=== PATIENT | male | born 1975 | race Caucasian/White ===

== ENCOUNTER 2024-03-14 18:57 | Inpatient (IN) | payer MEDICAID ==
[~2024-03-14] VITALS: Ht 162.6 cm; Wt 66.4 kg
[2024-03-14] MEDS: NOREPINEPHRINE 4 MG in DEXTROSE 5% 250 ML IV ONE (00:10)
[2024-03-14] MEDS ORDERED: DILTIAZEM 25 MG/5 ML VIAL IVP ONE (19:00)
[2024-03-14] MEDS ORDERED: DILTIAZEM 125 MG/25 ML VIAL IV ONE (19:10)
[2024-03-14 19:18] LABS: BASOPHILS # (AUTO) 0.1 K/uL (0.00-0.22); BASOPHILS % (AUTO) 0.9 % (0.0-2.0); EOSINOPHILS % (AUTO) 0.5 % (0.0-4.0); HEMATOCRIT 34.8 % (36-52); HEMOGLOBIN 11.4 g/dL (12.0-18.0); LYMPHOCYTES # (AUTO) 1.3 K/uL (2.0-11.5); LYMPHOCYTES % (AUTO) 14.5 % (20.5-51.1); MEAN CORPUSCULAR HEMOGLOBIN 24 pg (27-31); MEAN CORPUSCULAR HGB CONC 33 g/dL (33-37); MEAN CORPUSCULAR VOLUME 74.3 fL (80-94); MONOCYTES # (AUTO) 0.7 K/uL (0.8-1.0); MONOCYTES % (AUTO) 7.6 % (1.7-9.3); NEUTROPHILS # (AUTO) 6.7 K/uL (1.8-7.7); NEUTROPHILS % (AUTO) 76.5 % (42.2-75.2); PLATELET COUNT (AUTO) 389 K/uL (140-450); RED BLOOD CELL COUNT(AUTO) 4.69 MIL/uL (4.20-6.10); WHITE BLOOD COUNT (AUTO) 8.7 K/uL (4.8-10.8)
[2024-03-14 19:21] VITALS: BP 123/96; PULSE 175; RESP 30; TEMP 98.3; O2SAT 90
[2024-03-14] MEDS: DILTIAZEM 25 MG/5 ML VIAL IVP ONE (19:27)
[2024-03-14] MEDS: DILTIAZEM 125 MG in DEXTROSE 5% 100 ML IV ONE (19:30)
[2024-03-14 19:53] LABS: ALANINE AMINOTRANSFERASE 82 U/L (12-78); ALBUMIN 2.5 g/dL (3.4-5.0); ALKALINE PHOSPHATASE 154 U/L (50-136); ASPARTATE AMINOTRANSFERASE 61 U/L (15-37); BILIRUBIN,DIRECT 0.1 mg/dL (0.0-0.3); TOTAL BILIRUBIN 0.4 mg/dL (0.0-1.0); TOTAL PROTEIN, SERUM 6.2 g/dL (6.4-8.2)
[2024-03-14 20:01] LABS: ANION GAP 13.6 (8-16); CALCIUM 7.9 mg/dL (8.5-10.1); CARBON DIOXIDE 22.4 mmol/L (21-32); CREATININE 0.9 mg/dL (0.6-1.3)
[2024-03-14 20:49] LABS: APPEARANCE,URINE CLEAR (CLEAR); BILIRUBIN,URINE NEGATIVE (NEGATIVE); BLOOD, URINE NEGATIVE (NEGATIVE); COLOR,URINE YELLOW (YELLOW); LEUKOCYTE ESTERASE ,URINE NEGATIVE (NEGATIVE); NITRITE, URINE NEGATIVE (NEGATIVE); PROTEIN,URINE 1+ (NEGATIVE); UGLUCOSE NEGATIVE (NEGATIVE)
[2024-03-14 20:58] LABS: AMPHETAMINE, URINE POSITIVE ng/ml (NEG <=1000); BARBITURATE, URINE NEGATIVE ng/ml (NEG <=200); BENZODIAZEPINE, URINE NEGATIVE ng/mL (NEG <=200); CANNABINOID, URINE POSITIVE ng/mL (NEG <=50); COCAINE, URINE NEGATIVE ng/mL (NEG <=300); OPIATE, URINE NEGATIVE ng/mL (NEG <=2000); PHENCYCLIDINE SCREEN,URINE NEGATIVE ng/mL (NEG <=25)
[2024-03-14] MEDS: METOPROLOL 50 MG TAB PO ONE (21:13)
[2024-03-14 21:17] LABS: BACTERIA,URINE FEW /HPF (None Seen); RBC,URINE 0-5 /HPF (0-5); WBC,URINE 0-5 /HPF (0-5)
[2024-03-14 21:18] LABS: MUCUS,URINE None Seen /LPF (None Seen); SQUAMOUS EPITHELIAL CELL,UR 0-3 (FEW) /LPF (0-3 (FEW)); TRICHOMONAS,URINE None Seen /HPF (None Seen); WHITE BLOOD CELL CASTS,URINE None Seen /LPF (None Seen); YEAST,URINE None Seen /HPF (None Seen)
[2024-03-14] MEDS ORDERED: ONDANSETRON 4 MG/2 ML VIAL ONE (22:04)
[2024-03-14] MEDS ORDERED: cefTRIAXone 1,000 MG VIAL ONE (22:04)
[2024-03-14] MEDS: FUROSEMIDE 20 MG/2 ML VIAL IVP ONE (22:10)
[2024-03-14] MEDS: ONDANSETRON 4 MG/2 ML VIAL IVP ONE (22:23)
[2024-03-14] MEDS ORDERED: AZITHROMYCIN 500 MG INJ VIAL IV ONE (22:30)
[2024-03-14] MEDS: ETOMIDATE 20 MG/10 ML VIAL IVP ONE (22:52)
[2024-03-14] MEDS: SUCCINYLCHOLINE CHLORIDE 200 MG/10 ML VIAL IVP ONE (22:53)
[2024-03-14] MEDS ORDERED: PROPOFOL 1000 MG/100 ML PREMIX 100 ML IV ONE (22:55)
[2024-03-14] MEDS ORDERED: PROPOFOL 200 MG/20 ML VIAL IV ONE (23:00)
[2024-03-14] MEDS: PROPOFOL 1000 MG/100 ML PREMIX 100 ML IV SCH (23:15)
[2024-03-14 23:28] LABS: LACTIC ACID 2.4 mmol/L (0.4-2.0)
[2024-03-14] MEDS: AZITHROMYCIN 500 MG in DEXTROSE 5% 250 ML IV ONE (23:30)
[2024-03-14] MEDS: MIDAZOLAM MDV 50 MG/10 ML VIAL IV ONE (23:45)
[2024-03-14] MEDS: MIDAZOLAM MDV 50 MG in NACL 0.9% 40 ML IV STA (23:45)
[2024-03-14 23:46] VITALS: BP 103/79; PULSE 89; O2SAT 99
[2024-03-14] MEDS ORDERED: NOREPINEPHRINE 4 MG/4 ML VIAL IV ONE (23:56)
[2024-03-15] VITALS (32 sets, daily range): BP systolic 94–143; BP diastolic 31–104; PULSE 62–146; RESP 24–30; TEMP 97.1–97.6; O2SAT 90–100
[2024-03-15] MEDS ORDERED: HYDROcodone/APAP 7.5/325 MG 1 TAB PO PRN (01:40)
[2024-03-15] MEDS ORDERED: POTASSIUM CHLORIDE 10 MEQ TABER PO PRN (01:40)
[2024-03-15] MEDS ORDERED: DOCUSATE SODIUM 100 MG GELCAP PO PRN (01:40)
[2024-03-15] MEDS ORDERED: ONDANSETRON 4 MG/2 ML VIAL IM/IVP PRN (01:40)
[2024-03-15] MEDS ORDERED: guaiFENesin DM 200/20 MG-10 ML 10 ML UDC PO PRN (01:40)
[2024-03-15] MEDS ORDERED: ZOLPIDEM 5 MG TAB PO PRN (01:40)
[2024-03-15 02:44] LABS: FLU A ANTIGEN negative (NEGATIVE); FLU B ANTIGEN NEGATIVE (NEGATIVE)
[2024-03-15 03:12] LABS: BASOPHILS # (AUTO) 0.1 K/uL (0.00-0.22); BASOPHILS % (AUTO) 0.4 % (0.0-2.0); EOSINOPHILS % (AUTO) 0.1 % (0.0-4.0); HEMATOCRIT 39.3 % (36-52); HEMOGLOBIN 11.8 g/dL (12.0-18.0); LYMPHOCYTES # (AUTO) 1.3 K/uL (2.0-11.5); LYMPHOCYTES % (AUTO) 8.3 % (20.5-51.1); MEAN CORPUSCULAR HEMOGLOBIN 24 pg (27-31); MEAN CORPUSCULAR HGB CONC 30 g/dL (33-37); MEAN CORPUSCULAR VOLUME 78.5 fL (80-94); MONOCYTES % (AUTO) 6.6 % (1.7-9.3); NEUTROPHILS # (AUTO) 13.1 K/uL (1.8-7.7); NEUTROPHILS % (AUTO) 84.6 % (42.2-75.2); PLATELET COUNT (AUTO) 248 K/uL (140-450); RED BLOOD CELL COUNT(AUTO) 5.01 MIL/uL (4.20-6.10); RED CELL DISTRIBUTION WIDTH 19.9 % (11.6-13.7); WHITE BLOOD COUNT (AUTO) 15.5 K/uL (4.8-10.8)
[2024-03-15 03:34] LABS: ALBUMIN 2.5 g/dL (3.4-5.0); ANION GAP 24.1 (8-16); CALCIUM 7.7 mg/dL (8.5-10.1); CARBON DIOXIDE 13.8 mmol/L (21-32); CREATININE 1.7 mg/dL (0.6-1.3); POTASSIUM 4.9 mmol/L (3.5-5.1); TOTAL BILIRUBIN 1.1 mg/dL (0.0-1.0); TOTAL PROTEIN, SERUM 6.3 g/dL (6.4-8.2)
[2024-03-15 03:42] LABS: LACTIC ACID 10.8 mmol/L (0.4-2.0)
[2024-03-15] MEDS ORDERED: PIPERACILLIN/TAZOBACTAM 3.375 GM VIAL IV ONE (04:32)
[2024-03-15] MEDS ORDERED: NOREPINEPHRINE 4 MG/4 ML VIAL IV ONE (04:32)
[2024-03-15] MEDS: PIPERACILLIN/TAZOBACTAM 3.375 GM in DEXTROSE 5% 50 ML IV SCH (06:06)
[2024-03-15 06:11] LABS: BLOOD GAS BASE EXCESS -12.8 mmol/L (-2.0-2.0); BLOOD GAS HCO3 11.6 mmol/L (22-26); BLOOD GAS PCO2 23.6 mmHg (35-45); BLOOD GAS PO2 84.9 mmHg (75-100)
[2024-03-15] MEDS ORDERED: CRUSHER, PILL MC ONE (07:59)
[2024-03-15] MEDS: ACETAMINOPHEN 325 MG TAB PO PRN (08:13)
[2024-03-15] MEDS: PANTOPRAZOLE 40 MG TABEC PO SCH (09:08)
[2024-03-15] MEDS: methylPREDNISolone SS 40 MG/ML VIAL IVP SCH (09:08)
[2024-03-15] MEDS: SODIUM BICARBONATE 8.4% PFS 50 MEQ/50 ML SYR IVP SCH (09:11)
[2024-03-15] MEDS: ENOXAPARIN 40 MG/0.4 ML SYR SUBQ SCH (09:15)
[2024-03-15] MEDS: MIDAZOLAM MDV 50 MG in NACL 0.9% 40 ML IV PRN (11:00)
[2024-03-15] MEDS: NOREPINEPHRINE 4 MG in DEXTROSE 5% 250 ML IV PRN (11:04)
[2024-03-15] MEDS ORDERED: ALBUTEROL SULFATE/IPRATROPIU 3 ML SOL IH PRN (11:20)
[2024-03-15] MEDS: PROPOFOL 1000 MG/100 ML PREMIX 100 ML IV PRN (12:41)
[2024-03-15] MEDS: ALBUTEROL SULFATE/IPRATROPIU 3 ML SOL IH SCH (13:16)
[2024-03-15] MEDS: SODIUM BICARBONATE 8.4% 50 MEQ in NACL 0.45% 1,000 ML IV SCH (16:20)
[2024-03-15] MEDS: NOREPINEPHRINE 16 MG in DEXTROSE 5% 250 ML IV PRN (17:12)
[2024-03-15] MEDS: AMIODARONE 150 MG in DEXTROSE 5% 100 ML IV ONE (23:26)
[2024-03-15] MEDS: AMIODARONE 150 MG/3 ML VIAL IV ONE (23:27)
[2024-03-15] MEDS: AMIODARONE 450 MG in DEXTROSE 5% 250 ML IV SCH (23:37)
[2024-03-15] MEDS: AMIODARONE 450 MG/9 ML VIAL IV ONE (23:38)
[2024-03-16] VITALS (46 sets, daily range): BP systolic 65–128; BP diastolic 43–97; PULSE 86–136; RESP 20–36; TEMP 96.6–98.2; O2SAT 39–100
[2024-03-16] MEDS: VECURONIUM 10 MG VIAL IVP ONE (02:50)
[2024-03-16] MEDS: FUROSEMIDE 40 MG/4 ML VIAL IVP ONE (05:04)
[2024-03-16 05:08] LABS: BLOOD GAS PH 6.908 (7.35-7.45)
[2024-03-16 05:10] LABS: BLOOD GAS PCO2 52.4 mmHg (35-45); BLOOD GAS PO2 48.1 mmHg (75-100)
[2024-03-16 05:11] LABS: BLOOD GAS BASE EXCESS -22.8 mmol/L (-2.0-2.0); BLOOD GAS HCO3 10.2 mmol/L (22-26)
[2024-03-16 05:12] LABS: BLOOD GAS O2 SAT% 53.8 % (92.0-98.5)
[2024-03-16 05:16] LABS: BASOPHILS % (AUTO) 0.1 % (0.0-2.0); HEMATOCRIT 44.7 % (36-52); HEMOGLOBIN 13.5 g/dL (12.0-18.0); LYMPHOCYTES # (AUTO) 1.1 K/uL (2.0-11.5); LYMPHOCYTES % (AUTO) 7.7 % (20.5-51.1); MEAN CORPUSCULAR HEMOGLOBIN 24 pg (27-31); MEAN CORPUSCULAR HGB CONC 30 g/dL (33-37); MEAN CORPUSCULAR VOLUME 78.4 fL (80-94); MONOCYTES # (AUTO) 0.5 K/uL (0.8-1.0); MONOCYTES % (AUTO) 3.9 % (1.7-9.3); NEUTROPHILS # (AUTO) 12.4 K/uL (1.8-7.7); NEUTROPHILS % (AUTO) 88.3 % (42.2-75.2); PLATELET COUNT (AUTO) 265 K/uL (140-450)
[2024-03-16] MEDS ORDERED: CODE BLUE PARTICIPANT 1 EA MISC MC ONE (05:40)
[2024-03-16 05:53] LABS: ALBUMIN 2.4 g/dL (3.4-5.0); ANION GAP 27.2 (8-16); CALCIUM 7.4 mg/dL (8.5-10.1); CARBON DIOXIDE 14.5 mmol/L (21-32); CREATININE 3.2 mg/dL (0.6-1.3); POTASSIUM 5.7 mmol/L (3.5-5.1); TOTAL BILIRUBIN 1.3 mg/dL (0.0-1.0); TOTAL PROTEIN, SERUM 6.3 g/dL (6.4-8.2)
[2024-03-16] MEDS: SODIUM BICARBONATE 8.4% PFS 50 MEQ/50 ML SYR IVP STA (06:54)
[2024-03-16] MEDS: SODIUM BICARBONATE 8.4% PFS 50 MEQ/50 ML SYR IVP ONE (06:57)
[2024-03-16 07:26] LABS: BLOOD GAS HCO3 12.7 mmol/L (22-26); BLOOD GAS PH 7.119 (7.35-7.45); BLOOD GAS PO2 89.1 mmHg (75-100)
[2024-03-16 07:27] LABS: BLOOD GAS O2 SAT% 92.7 % (92.0-98.5)
[2024-03-16] MEDS ORDERED: hePARIN / DEXT 5% PREMIX 250 ML IV SCH (07:30)
[2024-03-16] MEDS ORDERED: HEPARIN PER PHARMACY MC PRN (07:30)
[2024-03-16 10:16] LABS: BLOOD GAS HCO3 8.3 mmol/L (22-26); BLOOD GAS PCO2 32.3 mmHg (35-45); BLOOD GAS PH 7.026 (7.35-7.45); BLOOD GAS PO2 64.2 mmHg (75-100)
[2024-03-16 10:17] LABS: BLOOD GAS BASE EXCESS -21.6 mmol/L (-2.0-2.0)
[2024-03-16 10:18] LABS: BLOOD GAS O2 SAT% 81.6 % (92.0-98.5)
[2024-03-16] MEDS ORDERED: VASOPRESSIN 40 UNITS in NACL 0.9% 250 ML IV PRN (11:05)
[2024-03-16] MEDS: VASOPRESSIN 40 UNITS in NACL 0.9% 250 ML IV PRN (11:31)
[2024-03-16] MEDS: SODIUM ZIRCONIUM CYCLOSILICATE 10 GM POWD.PACK PO SCH (11:36)
[2024-03-16] MEDS: SODIUM BICARBONATE 8.4% 100 MEQ in DEXTROSE 5% 1,000 ML IV SCH (12:00)
[2024-03-16] MEDS: hePARIN / DEXT 5% PREMIX 250 ML IV SCH (13:00)
[2024-03-16] MEDS: PIPERACILLIN/TAZOBACTAM 2.25 GM in DEXTROSE 5% 50 ML IV SCH (17:38)
[2024-03-16 18:21] LABS: ANION GAP 34.3 (8-16); CALCIUM 6.6 mg/dL (8.5-10.1); CARBON DIOXIDE 10.7 mmol/L (21-32)
[2024-03-16] MEDS: AMIODARONE 200 MG TAB GT SCH (22:53)
[2024-03-16] MEDS ORDERED: AMIODARONE 200 MG TAB GT SCH (23:37)
[2024-03-17] VITALS (32 sets, daily range): BP systolic 79–136; BP diastolic 42–103; PULSE 85–138; RESP 30–33; TEMP 96.9–99.9; O2SAT 100
[2024-03-17 03:18] LABS: BASOPHILS # (AUTO) 0.2 K/uL (0.00-0.22); BASOPHILS % (AUTO) 0.7 % (0.0-2.0); EOSINOPHILS # (AUTO) 0.1 K/uL (0-0.4); EOSINOPHILS % (AUTO) 0.4 % (0.0-4.0); HEMATOCRIT 38.6 % (36-52); HEMOGLOBIN 11.5 g/dL (12.0-18.0); LYMPHOCYTES # (AUTO) 0.5 K/uL (2.0-11.5); LYMPHOCYTES % (AUTO) 2.2 % (20.5-51.1); MEAN CORPUSCULAR HEMOGLOBIN 23 pg (27-31); MEAN CORPUSCULAR HGB CONC 30 g/dL (33-37); MEAN CORPUSCULAR VOLUME 78.1 fL (80-94); MONOCYTES # (AUTO) 1.2 K/uL (0.8-1.0); MONOCYTES % (AUTO) 4.8 % (1.7-9.3); NEUTROPHILS # (AUTO) 23.1 K/uL (1.8-7.7); NEUTROPHILS % (AUTO) 91.9 % (42.2-75.2); PLATELET COUNT (AUTO) 258 K/uL (140-450); RED BLOOD CELL COUNT(AUTO) 4.94 MIL/uL (4.20-6.10); RED CELL DISTRIBUTION WIDTH 19.6 % (11.6-13.7)
[2024-03-17 03:20] LABS: WHITE BLOOD COUNT (AUTO) 25.2 K/uL (4.8-10.8)
[2024-03-17 03:31] LABS: ALBUMIN 2.3 g/dL (3.4-5.0); ANION GAP 31.3 (8-16); CALCIUM 6.8 mg/dL (8.5-10.1); CARBON DIOXIDE 16.5 mmol/L (21-32); CREATININE 3.8 mg/dL (0.6-1.3); POTASSIUM 4.8 mmol/L (3.5-5.1); TOTAL BILIRUBIN 2.3 mg/dL (0.0-1.0); TOTAL PROTEIN, SERUM 5.7 g/dL (6.4-8.2)
[2024-03-17 08:45] LABS: BLOOD GAS PH 7.268 (7.35-7.45)
[2024-03-17] MEDS: AMIODARONE 150 MG in DEXTROSE 5% 100 ML IV SCH (08:45)
[2024-03-17 08:46] LABS: BLOOD GAS BASE EXCESS -14.6 mmol/L (-2.0-2.0); BLOOD GAS HCO3 10.5 mmol/L (22-26); BLOOD GAS PCO2 23.5 mmHg (35-45); BLOOD GAS PO2 238.4 mmHg (75-100)
[2024-03-17 08:47] LABS: BLOOD GAS O2 SAT% 99.5 % (92.0-98.5)
[2024-03-17] MEDS: AMIODARONE 450 MG in DEXTROSE 5% 250 ML IV SCH (09:00)
[2024-03-17] MEDS: PANTOPRAZOLE 40 MG INJ VIAL IVP SCH (09:44)
[2024-03-17 12:08] LABS: HEPATITIS A ANTIBODY IGM Negative (Negative); HEPATITIS B CORE AB TOTAL Negative (Negative); HEPATITIS B CORE, IGM Negative (Negative); HEPATITIS B SURFACE ANTIBODY Non Reactive (.); HEPATITIS B SURFACE ANTIGEN Negative (Negative); HEPATITIS C VIRUS ANTIBODY Non Reactive (Non Reactive)
[2024-03-17 12:49] LABS: HEPATITIS A ANTIBODY TOTAL Positive (Negative)
[2024-03-17] MEDS: PIPERACILLIN/TAZOBACTAM 2.25 GM in DEXTROSE 5% 50 ML IV SCH (20:24)
[2024-03-17] MEDS: NOREPINEPHRINE 4 MG/4 ML VIAL IV ONE (21:34)
[2024-03-17] MEDS ORDERED: AZITHROMYCIN 500 MG INJ VIAL IV ONE (22:42)
[2024-03-17] MEDS: AZITHROMYCIN 500 MG in DEXTROSE 5% 250 ML IV SCH (22:48)
[2024-03-17] MEDS: PHENYLEPHRINE 10 MG/ML VIAL ONE (23:59)
[2024-03-18] VITALS: BP 39/26; PULSE 68; PULSE 85; RESP 30; TEMP 98.9; O2SAT 100
[2024-03-18] MEDS: PHENYLEPHRINE 40 MG in NACL 0.9% 250 ML IV PRN
[2024-03-18] MEDS ORDERED: CODE BLUE PARTICIPANT 1 EA MISC MC ONE
[2024-03-18] MEDS ORDERED: EPINEPHrine 1 MG/ML AMP ONE (00:14)
[2024-03-18] MEDS: EPINEPHrine 1 MG/ML AMP ONE (00:17)
[2024-03-18] MEDS ORDERED: PRIMARY CRASH CART TRAY MC ONE (00:39)
[2024-03-18 01:00] VITALS: BP 99/74; PULSE 89; RESP 30; O2SAT 92
[2024-03-18] MEDS: EPINEPHrine 1 mg/mL 10 MG in DEXTROSE 5% 250 ML IV PRN (06:17)
== END 2024-03-18 01:18 | DRG 720 ==
LOC: MED 18:57 → MMU 03-15 01:41 → MIC 03-15 06:30
PROVIDERS: ADMIT Student in an Organized Health Care Education/Training Program; ATTEND Student in an Organized Health Care Education/Training Program
PROC: 0BH18EZ Insertion of Endotracheal Airway into Trachea, Via Natural or Artificial Opening Endoscopic (ICD-10-PCS; principal; 2024-03-15)
PROC: 5A1945Z Respiratory Ventilation, 24-96 Consecutive Hours (ICD-10-PCS; 2024-03-15)
PROC: 02HV33Z Insertion of Infusion Device into Superior Vena Cava, Percutaneous Approach (ICD-10-PCS; 2024-03-16)
PROC: B548ZZA Ultrasonography of Superior Vena Cava, Guidance (ICD-10-PCS; 2024-03-16)
PROC: 5A12012 Performance of Cardiac Output, Single, Manual (ICD-10-PCS; 2024-03-16)
PROC: 5A1D70Z Performance of Urinary Filtration, Intermittent, Less than 6 Hours Per Day (ICD-10-PCS; 2024-03-16)
PROC: 5A1D70Z Performance of Urinary Filtration, Intermittent, Less than 6 Hours Per Day (ICD-10-PCS; 2024-03-17)
PROC: 5A1D70Z Performance of Urinary Filtration, Intermittent, Less than 6 Hours Per Day (ICD-10-PCS; 2024-03-18)
DX: A41.9 Sepsis, unspecified organism (principal); N17.0 Acute kidney failure with tubular necrosis; R65.21 Severe sepsis with septic shock; J96.01 Acute respiratory failure with hypoxia; J96.02 Acute respiratory failure with hypercapnia; I50.23 Acute on chronic systolic (congestive) heart failure; E43 Unspecified severe protein-calorie malnutrition; J15.69 Pneumonia due to other Gram-negative bacteria; I46.9 Cardiac arrest, cause unspecified; E86.0 Dehydration; E87.1 Hypo-osmolality and hyponatremia; Z20.822 Contact with and (suspected) exposure to COVID-19; I48.0 Paroxysmal atrial fibrillation; B17.9 Acute viral hepatitis, unspecified; I42.9 Cardiomyopathy, unspecified; M62.82 Rhabdomyolysis; E87.20 Acidosis, unspecified; E87.5 Hyperkalemia; F15.129 Other stimulant abuse with intoxication, unspecified; Z59.00 Homelessness unspecified; Z79.899 Other long term (current) drug therapy
CPT/HCPCS: 31500; 36415; 36600; 71045; 76770; 80048; 80053; 80076; 80305; 81001; 82553; 82570; 82803; 83605; 83880; 84300; 84484; 85025; 85730; 86704; 86706; 86708; 86709; 86803; 87040; 87070; 87081; 87205; 87340; 89220; 90935; 92950; 93005; 93970; 94002; 94003; 94640; 96365; 96375; 99291; C9113; J0171; J0282; J0330; J0456; J0696; J1644; J1650; J1940; J2250; J2370; J2405; J2543; J2704; J2920; J3490; J7030; J7060; Q0092